=== PATIENT | male | born 1965 | race Caucasian/White ===

== ENCOUNTER 2017-02-19 11:25 | Emergency (ER) | payer MEDICARE, OTHER ==
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
[2017-02-19 11:58] LABS: Basophils # (A) 0.1 k/uL (0-0.2); Basophils % (A) 1 %; CH 30.9; CHCM 33.4; Eosinophils # (A) 0.2 k/uL (0-0.7); Eosinophils % (A) 2 %; HCT 48.2 % (39.0-53.0); HGB 16.5 gm/dL (13.0-17.5); Luc # (Auto) 0.14; Luc % (Auto) 2; Lymphocytes % (A) 25 %; MCH 31.9 pg (25.0-35.0); MCHC 34.3 g/dL (31.0-37.0); MCV 92.9 fL (80.0-100.0); Mean Platelet Volume 6.9; Monocytes # (A) 0.7 k/uL (0-1.0); Monocytes % (A) 8 %; Neutrophils % (A) 62 %; RBC 5.19 m/uL (4.30-5.90); RDW 13.6 % (11.5-15.5); WBC 8.1 k/uL (3.8-10.6); WBC (Perox) 7.37
[2017-02-19 12:02] LABS: ALT 23 U/L (21-72); AST 18 U/L (17-59); Alkaline Phosphatase 71 U/L (38-126); Amylase 45 U/L (30-110); Anion Gap 9 mmol/L; Blood Urea Nitrogen 13 mg/dL (9-20); Calcium 9.9 mg/dL (8.4-10.2); Carbon Dioxide 21 mmol/L (22-30); Chloride 109 mmol/L (98-107); Glucose 69 mg/dL (74-99); Magnesium 2.1 mg/dL (1.6-2.3); Non-African American GFR(MDRD) >60 (>60 ml/min/1.73 sqM); Potassium 4.8 mmol/L (3.5-5.1); Sodium 139 mmol/L (137-145); Total Bilirubin 0.4 mg/dL (0.2-1.3); Total Protein 7.2 g/dL (6.3-8.2)
[2017-02-19 12:07] LABS: Prothrombin Time 9.8 sec (9.0-12.0)
[2017-02-19 12:10] LABS: Creatine Kinase 59 U/L (55-170)
[2017-02-19 12:23] LABS: Creatine Kinase MB 0.5 ng/mL (0.0-2.4); Troponin I <0.012 ng/mL (0.000-0.034)
--- NOTE | 2017-02-19 13:20 | CT ---
EXAMINATION TYPE: CT brain wo con DATE OF EXAM: 02/19/2017 COMPARISON: NONE HISTORY: Head injury and dizziness CT DLP: 1041 mGycm Automated exposure control for dose reduction was used. FINDINGS: There has been a previous right temporal craniotomy. There is encephalomalacia in the posterior tempo ral lobe and parietal lobe on the right. There is ex vacuo enlargement of the right lateral ventricle . There is no focal lesion, midline shift or intracranial blood Visualized portions of the paranasal sinuses and mastoids are clear. IMPRESSION: 1. NO ACUTE INTRACRANIAL ABNORMALITY 2. POSTSURGICAL CHANGE WITH POSTERIOR RIGHT TEMPORAL ENCEPHALOMALACIA.
[2017-02-19 14:19] VITALS: BP 137/92; PULSE 80; RESP 16; TEMP 97.4
== END 2017-02-19 14:20 | disposition home or self-care (01) ==
LOC: EC 11:25
DX: F07.81 Postconcussional syndrome (principal); R42 Dizziness and giddiness; Z86.73 Personal history of transient ischemic attack (TIA), and cerebral infarction without residual deficits; F17.200 Nicotine dependence, unspecified, uncomplicated; Z79.82 Long term (current) use of aspirin
CPT/HCPCS: 36415; 70450; 80053; 82150; 82550; 82553; 83690; 83735; 84484; 85025; 85610; 93005; 99284